=== PATIENT | male | born 1985 | race Caucasian/White ===

== ENCOUNTER 2018-06-14 21:56 | Emergency (ER) | payer SELFPAY, OTHER ==
[2018-06-15] MEDS: CEFTRIAXONE 1 GM INJ IM (01:16)
[2018-06-15] MEDS: LIDOCAINE 1% (MDV) 20 ML INJ SC (01:16)
[2018-06-15] MEDS: IBUPROFEN 600 MG TAB PO (01:17)
[2018-06-15] MEDS: DEXAMETHASONE 4 MG TAB PO (01:35)
== END 2018-06-15 01:44 | disposition home or self-care (01) ==
LOC: FTE 21:56
DX: K11.8 Other diseases of salivary glands (principal); F17.210 Nicotine dependence, cigarettes, uncomplicated
CPT/HCPCS: 96372; 99284-25

== ENCOUNTER 2018-12-17 20:06 | Emergency (ER) | payer MEDICAID | END 2018-12-17 22:05 | disposition home or self-care (01) | LOC: FTE 20:06 | DX: R05 Cough (principal); R50.9 Fever, unspecified; F17.210 Nicotine dependence, cigarettes, uncomplicated | CPT/HCPCS: 99283 ==